=== PATIENT | male | born 1995 | race Caucasian/White ===

== ENCOUNTER 2017-10-20 21:48 | Emergency (ER) | END 2017-10-21 04:44 | disposition home or self-care (01) ==

== ENCOUNTER 2019-01-17 03:38 | Emergency (ER) | payer MEDICAID ==
[~2019-01-17] VITALS: Ht 182.9 cm; Wt 77.9 kg
[~2019-01-17 03:38] MED LIST: IBUP-1542 PO; NAPR-985 PO; ONDA4TAB14 PO
[2019-01-17 03:41] VITALS: Ht 182.9 cm; Wt 77.9 kg
[2019-01-17] MEDS ORDERED: KETOROLAC 15 MG INJ IV STA (04:04)
[2019-01-17] MEDS ORDERED: FAMOTIDINE 20 MG INJ IV STA (04:04)
[2019-01-17] MEDS ORDERED: ONDANSETRON 4 MG INJ IV STA (04:04)
[2019-01-17] MEDS ORDERED: SOD CHLORIDE 0.9% 1,000 ML IV STA (04:04)
[2019-01-17 05:19] VITALS: BP 138/76; PULSE 88; RESP 16
== END 2019-01-17 05:20 | disposition home or self-care (01) ==
LOC: FTE 03:38
DX: R10.11 Right upper quadrant pain (principal); R11.10 Vomiting, unspecified
CPT/HCPCS: 36415; 71100; 76705; 80053; 81001; 83690; 85025; 85610; 85730; 96374; 96375; J1885; J2405; J7030; Z7502; Z7610